=== PATIENT | female | born 1955 | race Caucasian/White ===

== ENCOUNTER 2021-07-15 14:15 | Emergency (ER) | payer MEDICARE, OTHER ==
[~2021-07-15] VITALS: Ht 167 cm; Wt 127.5 kg
--- NOTE | 2021-07-15 14:59 | ED General ---
General Stated Complaint: ATIVAN OVERDOSE History of Present Illness Date Seen by Provider: Jul 15, 2021 Time Seen by Provider: 14:56 Initial Comments 65-year-old female presents via private vehicle with her son who she just moved in with recently. Patient states that she has been taking Ativan this morning to "get out of the way", she just wanted to go to sleep. She feels like she is getting "underfoot" of her son and family and does not want to be a bother. Patient denies suicidality, wanting to do herself any harm. Admits she has been taking Ativan pretty frequently for the past 2 months as she has been followed by the [facility]. Since 7 AM this morning she is taking 12-16 0.5 mg tablets of Ativan and now is feeling a little bit sleepy, although ambulatory and conversive with out any confusion Allergies and Home Medications Patient Home Medication List Home Medication List Reviewed: Yes Review of Systems Review of Systems Constitutional: No fever, No malaise, No weakness Cardiovascular: No chest pain, No edema, No palpitations Psychiatric/Neurological: See HPI, Anxiety, Depressed, Emotional Problems Past Ancmsxk-Asrlwi-Vvfwpm Hx Patient Social History Tobacco Use?: Yes Physical Exam Vital Signs Capillary Refill : Height, Weight, BMI Height: '" Weight: lbs. oz. kg; BMI Method: General Appearance: No Apparent Distress, WD/WN; No Anxious HEENT: PERRL/EOMI, Normal ENT Inspection Respiratory: Chest Non Tender, Lungs Clear, Normal Breath Sounds, No Accessory Muscle Use, No Respiratory Distress Cardiovascular: Regular Rate, Rhythm, No Edema, No JVD Gastrointestinal: Non Tender, Soft Back: Normal Inspection Neurologic/Psychiatric: Alert, Oriented x3, No Motor/Sensory Deficits, Normal Mood/Affect Progress/Results/Core Measures Suspected Sepsis SIRS Temperature: Pulse: Respiratory Rate: Blood Pressure / Mean: Results/Orders Vital Signs/I&O Capillary Refill : Progress Note : Progress Note Patient denies suicidality, significant depression or wanting to hurt herself. States she really just wanted to sleep and be out of bed once way. Present with her son who she is currently moved in with and who is very supportive and concerned for his mother. Discussed the amount of Ativan that she is taking since last night (total of 8 mg) and patient has been taking it for the past 2 months fairly regularly and at similar doses. Patient did not want to be seen, wanted to go out and smoke and just wanted to go home. Discussed the amount of Ativan she had taken since 730 was not likely very significant for a person who has been taking it for couple months, however strongly urged her not to use this during the daytime and in this manner. She agrees and understands. She is going to follow-up with local mental health and get established with care. Son is comfortable taking her home and will watch her, encourage conversation cooperation between the 2. Them expressed understanding and patient was discharged cooperatively and son was in agreement. Departure Impression Primary Impression: Insomnia Qualified Codes: G47.00 - Insomnia, unspecified Additional Impression: Stress reaction Disposition: HOME, SELF-CARE Condition: Stable Departure-Patient Inst. Decision time for Depature: 14:58 Referrals: NO,LOCAL PHYSICIAN (PCP/Family) Primary Care Physician Patient Instructions: Insomnia (DC), Anxiety, Adult ED Add. Discharge Instructions: Recommend follow-up with mental health counselor in 1 week. DELIA LUIS DO Jul 15, 2021 14:59
[2021-07-15 15:05] VITALS: BP 163/96
== END 2021-07-15 15:02 | disposition home or self-care (01) ==
LOC: ER FS 14:18
DX: G47.00 Insomnia, unspecified (principal); F43.9 Reaction to severe stress, unspecified
CPT/HCPCS: 99281

== ENCOUNTER 2021-10-06 12:33 | Emergency (ER) | payer MEDICARE ==
[~2021-10-06] VITALS: Ht 167.7 cm; Wt 127.5 kg
--- NOTE | 2021-10-06 13:06 | ED Respiratory ---
General Chief Complaint: COVID19 Suspect/Confirmed Stated Complaint: SOB; COVID+ Source: patient Exam Limitations: no limitations History of Present Illness Date Seen by Provider: Oct 06, 2021 Time Seen by Provider: 12:36 Initial Comments 66yoF with PMH of COPD wears 2L O2 at night time, CAD with stents, HTN, HLD coming in due to 3 weeks of sinusitis like symptoms. Has been given mucinex, an inhaler, and an unknown antibiotic which she is still taking today. 6 days ago she noticed a change in her symptoms with new headache, worsening cough, and general malaise. In the middle the night she woke up feeling short of breath so took her oxygen saturation. She noticed her O2 sat was 81% (she was not using her oxygen at the time which is normally 2L nocturnally). Went to the walk in clinic this morning and was COVID positive so referred here. Has had ibuprofen today. Cough is productive of clear mucus. Of note, although she is supposed to wear 2 L of oxygen at night, a certain connector was broken and she has been waiting for this. Got a new one this morning so will be able to use her oxygen again. Allergies and Home Medications Allergies Coded Allergies: No Known Drug Allergies (Unverified , 10/06/21) Patient Home Medication List Home Medication List Reviewed: Yes Prednisone (Prednisone) 20 Mg Tab, 40 MG PO DAILY Prescribed by: ROEL HEARD on 10/06/21 7187 Review of Systems Review of Systems Constitutional: No chills, No fever EENTM: No blurred vision Respiratory: cough, short of breath Cardiovascular: No chest pain Gastrointestinal: No abdominal pain, No diarrhea, No nausea, No vomiting Genitourinary: no symptoms reported Musculoskeletal: no symptoms reported Skin: no symptoms reported Psychiatric/Neurological: No Symptoms Reported Hematologic/Lymphatic: No Symptoms Reported Immunological/Allergic: no symptoms reported All Other Systems Reviewed Negative Unless Noted: Yes Past Pugbgro-Iksndr-Iugouw Hx Patient Social History Tobacco Use?: Yes Immunizations Up To Date First/Initial COVID19 Vaccinat: MARCH 27 Second COVID19 Vaccination Kamar: APRIL 26 Physical Exam Vital Signs - First Documented 10/06/21 12:45 Temp 36.5 Pulse 99 Resp 16 B/P (MAP) 144/78 (100) Pulse Ox 97 O2 Delivery Room Air Capillary Refill : Height: '" Weight: lbs. oz. kg; 45.00 BMI Method: General Appearance: WD/WN, no apparent distress Eyes: Bilateral Eye Normal Inspection HEENT: PERRL/EOMI, normal ENT inspection, pharynx normal Neck: non-tender, full range of motion, supple, normal inspection Respiratory: chest non-tender, lungs clear, normal breath sounds, no respiratory distress, no accessory muscle use Cardiovascular: regular rate, rhythm, no edema, no murmur Gastrointestinal: normal bowel sounds, non tender, soft; No distended, No guarding, No rebound Extremities: normal range of motion, non-tender, normal inspection, no pedal edema, no calf tenderness, normal capillary refill Neurologic/Psychiatric: no motor/sensory deficits, alert Skin: normal color, warm/dry Lymphatic: no adenopathy Progress/Results/Core Measures Suspected Sepsis SIRS Temperature: Pulse: Respiratory Rate: Laboratory Tests 10/06/21 13:00: White Blood Count 3.5L Blood Pressure / Mean: Laboratory Tests 10/06/21 13:00: Creatinine 0.85, Platelet Count 112L, Total Bilirubin 0.5 Results/Orders Lab Results Laboratory Tests Test 10/06/21 13:00 Range/Units White Blood Count 3.5 L 4.3-11.0 10^3/uL Red Blood Count 5.04 3.80-5.11 10^6/uL Hemoglobin 14.8 11.5-16.0 g/dL Hematocrit 46 35-52 % Mean Corpuscular Volume 92 80-99 fL Mean Corpuscular Hemoglobin 29 25-34 pg Mean Corpuscular Hemoglobin Concent 32 32-36 g/dL Red Cell Distribution Width 13.7 10.0-14.5 % Platelet Count 112 L 130-400 10^3/uL Mean Platelet Volume 11.1 9.0-12.2 fL Immature Granulocyte % (Auto) 1 % Neutrophils (%) (Auto) 66 42-75 % Lymphocytes (%) (Auto) 27 12-44 % Monocytes (%) (Auto) 6 0-12 % Eosinophils (%) (Auto) 0 0-10 % Basophils (%) (Auto) 0 0-10 % Neutrophils # (Auto) 2.3 1.8-7.8 X 10^3 Lymphocytes # (Auto) 0.9 L 1.0-4.0 X 10^3 Monocytes # (Auto) 0.2 0.0-1.0 X 10^3 Eosinophils # (Auto) 0.0 0.0-0.3 10^3/uL Basophils # (Auto) 0.0 0.0-0.1 10^3/uL Immature Granulocyte # (Auto) 0.0 0.0-0.1 10^3/uL Percent Immature Platelet Fraction 3.5 0.0-7.6 % Sodium Level 137 135-145 MMOL/L Potassium Level 3.7 3.6-5.0 MMOL/L Chloride Level 100 98-107 MMOL/L Carbon Dioxide Level 26 21-32 MMOL/L Anion Gap 11 5-14 MMOL/L Blood Urea Nitrogen 8 7-18 MG/DL Creatinine 0.85 0.60-1.30 MG/DL Estimat Glomerular Filtration Rate 67 BUN/Creatinine Ratio 9 Glucose Level 113 H 70-105 MG/DL Calcium Level 8.5 8.5-10.1 MG/DL Corrected Calcium 8.7 8.5-10.1 MG/DL Total Bilirubin 0.5 0.1-1.0 MG/DL Aspartate Amino Transf (AST/SGOT) 30 5-34 U/L Alanine Aminotransferase (ALT/SGPT) 19 0-55 U/L Alkaline Phosphatase 116 40-136 U/L Troponin I < 0.30 <0.30 NG/ML Pro-B-Type Natriuretic Peptide 315.2 H <75.0 PG/ML Total Protein 7.2 6.4-8.2 GM/DL Albumin 3.8 3.2-4.5 GM/DL My Orders Orders - ROEL HEARD MD Prednisone Tablet (Deltasone Tablet) (10/06/21 13:15) Ekg Tracing (10/06/21 13:15) Cbc With Automated Diff (10/06/21 13:15) Comprehensive Metabolic Panel (10/06/21 13:15) Probnp Fs (10/06/21 13:15) Troponin I Fs (10/06/21 13:15) Chest 1 View Ap/Pa Only (10/06/21 13:15) Covid-19 External Lab Results (10/06/21 13:25) Isolation Central Supply Req (10/06/21 13:25) Medications Given in ED Current Medications Medications Dose Ordered Sig/Deanna Route Start Time Stop Time Status Last Admin Dose Admin Prednisone 40 mg ONCE ONCE PO 10/06/21 13:15 10/06/21 13:19 DC 10/06/21 14:08 40 MG Vital Signs/I&O 10/06/21 10/06/21 12:45 14:08 Temp 36.5 36.5 Pulse 99 85 Resp 16 16 B/P (MAP) 144/78 (100) 135/81 Pulse Ox 97 96 O2 Delivery Room Air Room Air Capillary Refill : Progress Note : Progress Note 66-year-old female with above history coming in due to low oxygen saturation reading in the middle of the night and being Covid positive as of today. She is day 6 of these symptoms. She is not currently feeling short of breath, but does feel short of breath with more exertion. Oxygen saturation ranged from 93 to 97% the entire time in the emergency department even when I ambulate her around the room. Lungs were clear. Given the more productive cough with her COPD, also possible she is having a COPD exacerbation on top of the COVID infection. She is already on an antibiotic which I can only assume would cover some re spiratory causes given she was treated for sinusitis. I will add prednisone for her COPD. EKG obtained with no acute ischemic changes. Chest x-ray is clear on my interpretation. Basic labs including cardiac biomarkers ordered and are reassuring including negative troponin. The only low oxygen readings the patient had that were consistent were in the middle the night when she was not wearing her oxygen. She is supposed to wear 2 L at nighttime which now she is able to do since she has the appropriate piece to connect it. I believe she is stable for discharge with outpatient follow-up. She was sent home with strict return precautions.. Of note, I discussed the monoclonal antibody treatment, Sotrovimab, and that it is currently under [facility]. Given that the patient is on COPD with intermittent oxygen requirements and CAD with stenting, I believe she would be high enough risk to warrant this at this time. Discussed this with the patient and she does want to go forward with therapy if available. ECG Initial ECG Impression Date: Oct 06, 2021 Initial ECG Impression Time: 13:15 Initial ECG Rate: 92 Initial ECG Rhythm: Normal Sinus Comment Narrow QRS, normal axis, Q waves in the inferior leads, no significant ST changes or T wave abnormalities Diagnostic Imaging Diagonstic Imaging: Xray Plain Films/CT/US/NM/MRI: chest Comments [facility], [facility]. [place], [place] NAME: NOAH HOWELL [facility] REC#: [id number] PT STATUS: REG ER : 1955 PHYSICIAN: ROEL HEARD MD ADMIT DATE: 10/06/21/ER FS Draft Date of Exam:10/06/21 CHEST 1 VIEW AP/PA ONLY INDICATION: Dyspnea and COVID infection. AP view of the chest is obtained. There is no previous study for comparison. Overall heart size and pulmonary vascularity are within normal limits. There is air trapping, bilaterally. There is no evidence of significant pleural fluid. IMPRESSION: No acute abnormality is identified. Dictated on workstation # [id number] Dict: 10/06/21 1327 Trans: 10/06/21 133[address] [facility] [id number] Interpreted by: NIK MANDUJANO MD Electronically signed by: Departure Impression Primary Impression: COVID-19 Additional Impression: COPD (chronic obstructive pulmonary disease) Qualified Codes: J44.9 - Chronic obstructive pulmonary disease, unspecified Disposition: HOME, SELF-CARE Condition: Stable Departure-Patient Inst. Referrals: DEANNA AHUJA MD (PCP) Primary Care Physician Patient Instructions: COVID-19 ED Add. Discharge Instructions: You do have COVID, but your chest x-ray looks clear today and you do not have any obvious pneumonia. I do recommend finishing the antibiotic you were prescribed. I will add in a steroid which can help with your COPD and lung infections such as COVID. You got 1 dose here, and you will take it for another 4 days on top of that. I also sent an order in for the monoclonal antibody treatment called Sotrovimab. A pharmacist or someone similar will call from [place] to see if they can schedule this. They have very limited number of doses, so they may not be able to do this, but if they are able to, I would william mmend it. I would continue to wear your oxygen at nighttime, and if you are low at home it is okay to put it on until you come back up. Please call your regular doctor on Saturday if you are not feeling significantly better to see if they want make any changes to your medications. Scripts Prednisone (Prednisone) 20 Mg Tab 40 MG PO DAILY for 4 Days, #8 TAB 0 Refills Prov: ROEL HEARD MD 10/06/21 ROEL HEARD MD Oct 06, 2021 13:06
[2021-10-06] MEDS ORDERED: predniSONE 20 MG TAB PO ONE (13:15)
--- NOTE | 2021-10-06 13:31 | Diagnostic Imaging Report ---
INDICATION: Dyspnea and COVID infection. AP view of the chest is obtained. There is no previous study for comparison. Overall heart size and pulmonary vascularity are within normal limits. There is air trapping, bilaterally. There is no evidence of significant pleural fluid. IMPRESSION: No acute abnormality is identified. Dictated by: Dictated on workstation # [id number]
[2021-10-06 13:34] LABS: WHITE BLOOD COUNT 3.5 10^3/uL (4.3-11.0)
[2021-10-06 13:35] LABS: BASOPHILS % (AUTO) 0 % (0-10); EOSINOPHILS % (AUTO) 0 % (0-10); HEMATOCRIT 46 % (35-52); HEMOGLOBIN 14.8 g/dL (11.5-16.0); LYMPHOCYTES # (AUTO) 0.9 X 10^3 (1.0-4.0); LYMPHOCYTES % (AUTO) 27 % (12-44); MEAN CORPUSCULAR HEMOGLOBIN 29 pg (25-34); MEAN CORPUSCULAR HGB CONC 32 g/dL (32-36); MEAN CORPUSCULAR VOLUME 92 fL (80-99); MEAN PLATELET VOLUME 11.1 fL (9.0-12.2); MONOCYTES # (AUTO) 0.2 X 10^3 (0.0-1.0); MONOCYTES % (AUTO) 6 % (0-12); NEUTROPHILS # (AUTO) 2.3 X 10^3 (1.8-7.8); NEUTROPHILS % (AUTO) 66 % (42-75); PLATELET COUNT 112 10^3/uL (130-400)
[2021-10-06] MEDS ORDERED: PRD20T PO (13:47)
[2021-10-06 13:51] LABS: BUN/CREATININE RATIO 9; CARBON DIOXIDE 26 MMOL/L (21-32); CHLORIDE 100 MMOL/L (98-107); CREATININE SERUM 0.85 MG/DL (0.60-1.30); GFR ESTIMATED 67; POTASSIUM 3.7 MMOL/L (3.6-5.0); SODIUM 137 MMOL/L (135-145)
[2021-10-06 13:52] LABS: ALANINE AMINOTRANSFERASE 19 U/L (0-55); ALBUMIN 3.8 GM/DL (3.2-4.5); ALKALINE PHOSPHATASE 116 U/L (40-136); BILIRUBIN,TOTAL 0.5 MG/DL (0.1-1.0); CALCIUM 8.5 MG/DL (8.5-10.1); GLUCOSE 113 MG/DL (70-105); TOTAL PROTEIN 7.2 GM/DL (6.4-8.2)
[2021-10-06 14:08] VITALS: BP 135/81
== END 2021-10-06 14:15 | disposition home or self-care (01) ==
LOC: EDUNIT# 12:33 → ER FS 12:36
DX: U07.1 COVID-19 (principal); J44.9 Chronic obstructive pulmonary disease, unspecified; I10 Essential (primary) hypertension; I25.10 Atherosclerotic heart disease of native coronary artery without angina pectoris; Z95.5 Presence of coronary angioplasty implant and graft; Z99.81 Dependence on supplemental oxygen
CPT/HCPCS: 36415; 71045; 80053; 83880; 84484; 85025; 93005

== ENCOUNTER → 2021-10-09 | Outpatient (CLI) | payer MEDICARE ==
[~2021-10-09] VITALS: Ht 66 cm; Wt 125.0 kg
[~2021-10-09] MED LIST: ACETAMINOPHEN 500 MG TAB (TYLENOL) PO PRN; EPINEPHrine INJECTION 1 MG/ML AMP IM PRN; ONDANSETRON 4 MG/2 ML (SDV) Z0FRAN IV PRN; PRD20T PO; SOTROVIMAB 500 MG/NS 100 ML IVPB IV ONE; diphenhydrAMINE 50 MG/ML INJ (BENADRYL) IV PRN
[2021-10-09 10:57] VITALS: BP 150/89
[2021-10-09 11:59] VITALS: BP 153/82
== END ==
LOC: INFUSION 10:33
PROVIDERS: ATTEND Emergency Medicine
DX: U07.1 COVID-19 (principal)

== ENCOUNTER 2021-12-02 20:52 | Emergency (ER) | payer MEDICARE, MEDICAID ==
[~2021-12-02] VITALS: Ht 167.7 cm; Wt 124.7 kg
[~2021-12-02 20:52] MED LIST changes: -ACETAMINOPHEN 500 MG TAB (TYLENOL) PO PRN; -EPINEPHrine INJECTION 1 MG/ML AMP IM PRN; -ONDANSETRON 4 MG/2 ML (SDV) Z0FRAN IV PRN; -SOTROVIMAB 500 MG/NS 100 ML IVPB IV ONE; -diphenhydrAMINE 50 MG/ML INJ (BENADRYL) IV PRN
[2021-12-02] MEDS ORDERED: RT-LEVALBUTEROL (XOPENEX) 1.25 MG/3 ML NEB NON-FORMULARY INH STA (21:14)
[2021-12-02] MEDS ORDERED: ASPIRIN 81 MG CHEW (CHILDREN'S ASA) PO ONE (21:15)
[2021-12-02 21:19] LABS: BASOPHILS # (AUTO) 0.1 10^3/uL (0.0-0.1); BASOPHILS % (AUTO) 1 % (0-10); EOSINOPHILS # (AUTO) 0.2 10^3/uL (0.0-0.3); EOSINOPHILS % (AUTO) 3 % (0-10); HEMATOCRIT 45 % (35-52); HEMOGLOBIN 15.2 g/dL (11.5-16.0); LYMPHOCYTES # (AUTO) 2.8 X 10^3 (1.0-4.0); LYMPHOCYTES % (AUTO) 32 % (12-44); MEAN CORPUSCULAR HEMOGLOBIN 30 pg (25-34); MEAN CORPUSCULAR HGB CONC 34 g/dL (32-36); MEAN CORPUSCULAR VOLUME 89 fL (80-99); MEAN PLATELET VOLUME 10.7 fL (9.0-12.2); MONOCYTES # (AUTO) 0.5 X 10^3 (0.0-1.0); MONOCYTES % (AUTO) 5 % (0-12); NEUTROPHILS # (AUTO) 5.4 X 10^3 (1.8-7.8); NEUTROPHILS % (AUTO) 60 % (42-75); PLATELET COUNT 160 10^3/uL (130-400); WHITE BLOOD COUNT 8.9 10^3/uL (4.3-11.0)
--- NOTE | 2021-12-02 21:23 | ED Chest Pain ---
General Chief Complaint: Chest Pain Stated Complaint: CHEST PAIN Source: patient, family History of Present Illness Date Seen by Provider: Dec 02, 2021 Time Seen by Provider: 20:53 Initial Comments 66-year-old female presenting with complaints of chest pain for the last hour. She states that it came on suddenly and she felt like her heart was beating hard and palpating. 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 She has had constant chest pain since onset over an hour precinct captain. She states initially it went to her left jaw and arm. She now just has pain in her chest. She also has wheezing and tightness in her chest that she is not sure if it is from her COPD or if it is from something with her heart. She also reports her cough has been different recently than her usual smoker's cough. She has not been running a fever or having chills. She is having a dry cough but eventually if she coughs long enough and hard enough she gets some phlegm up with her cough. She denies nausea with her pain. She states this pain does not feel like when she has had prior heart attacks. Timing/Duration: 1 hour Severity/Quality: severe Location: substernal Radiation: jaw, arms (left) Activities at Onset: none Prior CP/Workup: angina, cardiac cath, heart attack ASA po STAVE LOG CUT OFF SAW OPERATOR: No NTG SL STAVE LOG CUT OFF SAW OPERATOR: No Associated Symptoms: No abdominal pain, No back pain, No diaphoresis, No dizziness, No edema, No fatigue, No fever/chills, No headache, No heartburn, No nausea/vomiting, No rash; shortness of breath; No swelling/lump in chest, No syncope, No weakness Allergies and Home Medications Allergies Coded Allergies: No Known Drug Allergies (Unverified , 10/06/21) Patient Home Medication List Home Medication List Reviewed: Yes Diltiazem HCl (Diltiazem 24Hr ER) 180 Mg Cap.er.24h, 180 MG PO DAILY Prescribed by: BROOKLYN PEÑALOZA on 12/02/21 2310 Prednisone (Prednisone) 20 Mg Tab, 40 MG PO DAILY Prescribed by: ROEL HEARD on 10/06/21 1347 Review of Systems Review of Systems Constitutional: No chills, No fever EENTM: No Symptoms Reported Respiratory: See HPI Cardiovascular: See HPI Gastrointestinal: No Symptoms Reported Genitourinary: No Symptoms Reported Musculoskeletal: no symptoms reported Skin: no symptoms reported Psychiatric/Neurological: Anxiety Endocrine: No Symptoms Reported Past Mdnwdai-Srkeqi-Jxnvnr Hx Patient Social History Tobacco Use?: Yes Tobacco type used: Cigarettes Smoking Status: Current Everyday Smoker Substance use?: No Alcohol Use?: No Pt feels they are or have been: No Immunizations Up To Date First/Initial COVID19 Vaccinat: MARCH 27 Second COVID19 Vaccination Kamar: APRIL 26 COVID19 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: [employer] Past Medical History Surgery/Hospitalization HX: Chronic Sinusitis; IA; Cardiac stent; depression; left sided breast cancer; Lumpectomy; christiano; gastric bypass; hernia repair, COPD Surgeries: Yes Abdominal (gastric bypass), Coronary Stent, Gallbladder, Lumpectomy Respiratory: Yes COPD Cardiac: Yes Angina, Atrial Fibrillation (new onset Nov), Coronary Artery Disease, Heart Attack, High Cholesterol, Hypertension, Peripheral Vascular Neurological: No Genitourinary: No Gastrointestinal: Yes (gastric bypass) Abdominal Hernia Musculoskeletal: No Endocrine: No Cancer: Yes Breast Anxiety Physical Exam Vital Signs Vital Signs - First Documented 12/02/21 20:55 Temp 36.3 Pulse 108 Resp 20 B/P (MAP) 175/115 (135) Pulse Ox 93 O2 Delivery Room Air Capillary Refill : Less Than 3 Seconds Height, Weight, BMI Height: '" Weight: lbs. oz. kg; 45.00 BMI Method: General Appearance: Anxious, Obese Neck: Full Range of Motion, Normal Inspection, Non Tender, Supple Respiratory: Chest Non Tender, No Accessory Muscle Use, No Respiratory Distress, Wheezing Cardiovascular: Normal Peripheral Pulses, Irregularly Irregular, Tachycardia Gastrointestinal: Normal Bowel Sounds, No Pulsatile Mass, Non Tender, Soft Rectal: Deferred Extremity: Normal Capillary Refill, Normal Inspection, No Pedal Edema Neurologic/Psychiatric: Alert, Oriented x3 Skin: Normal Color, Warm/Dry Progress/Results/Core Measures Results/Orders Lab Results Laboratory Tests Test 12/02/21 21:09 12/02/21 22:27 Range/Units White Blood Count 8.9 4.3-11.0 10^3/uL Red Blood Count 5.07 3.80-5.11 10^6/uL Hemoglobin 15.2 11.5-16.0 g/dL Hematocrit 45 35-52 % Mean Corpuscular Volume 89 80-99 fL Mean Corpuscular Hemoglobin 30 25-34 pg Mean Corpuscular Hemoglobin Concent 34 32-36 g/dL Red Cell Distribution Width 13.8 10.0-14.5 % Platelet Count 160 130-400 10^3/uL Mean Platelet Volume 10.7 9.0-12.2 fL Immature Granulocyte % (Auto) 0 % Neutrophils (%) (Auto) 60 42-75 % Lymphocytes (%) (Auto) 32 12-44 % Monocytes (%) (Auto) 5 0-12 % Eosinophils (%) (Auto) 3 0-10 % Basophils (%) (Auto) 1 0-10 % Neutrophils # (Auto) 5.4 1.8-7.8 X 10^3 Lymphocytes # (Auto) 2.8 1.0-4.0 X 10^3 Monocytes # (Auto) 0.5 0.0-1.0 X 10^3 Eosinophils # (Auto) 0.2 0.0-0.3 10^3/uL Basophils # (Auto) 0.1 0.0-0.1 10^3/uL Immature Granulocyte # (Auto) 0.0 0.0-0.1 10^3/uL Prothrombin Time 14.1 12.2-14.7 SEC INR Comment 1.1 0.8-1.4 Activated Partial Thromboplast Time 24 24-35 SEC Sodium Level 138 135-145 MMOL/L Potassium Level 3.8 3.6-5.0 MMOL/L Chloride Level 100 98-107 MMOL/L Carbon Dioxide Level 27 21-32 MMOL/L Anion Gap 11 5-14 MMOL/L Blood Urea Nitrogen 16 7-18 MG/DL Creatinine 0.90 0.60-1.30 MG/DL Estimat Glomerular Filtration Rate 71 BUN/Creatinine Ratio 18 Glucose Level 99 70-105 MG/DL Calcium Level 9.0 8.5-10.1 MG/DL Corrected Calcium 8.8 8.5-10.1 MG/DL Magnesium Level 1.6 1.6-2.4 MG/DL Total Bilirubin 0.7 0.1-1.0 MG/DL Aspartate Amino Transf (AST/SGOT) 17 5-34 U/L Alanine Aminotransferase (ALT/SGPT) 13 0-55 U/L Alkaline Phosphatase 108 40-136 U/L Myoglobin 55.5 10.0-92.0 NG/ML Troponin I < 0.30 < 0.30 <0.30 NG/ML Pro-B-Type Natriuretic Peptide 607.5 H <75.0 PG/ML Total Protein 7.2 6.4-8.2 GM/DL Albumin 4.2 3.2-4.5 GM/DL Lipase 28 8-78 U/L My Orders Orders - BROOKLYN PEÑALOZA MD Ekg Tracing (12/02/21 20:54) Cbc With Automated Diff (12/02/21 21:14) Magnesium (12/02/21 21:14) Chest 1 View Ap/Pa Only (12/02/21 21:14) Comprehensive Metabolic Panel (12/02/21 21:14) Myoglobin Serum (12/02/21 21:14) Protime With Inr (12/02/21 21:14) Partial Thromboplastin Time (12/02/21 21:14) O2 (12/02/21 21:14) Monitor-Rhythm Ecg Trace Only (12/02/21 21:14) Aspirin Chewable Tablet (Baby Aspirin Ch (12/02/21 21:15) Ed Iv/Invasive Line Start (12/02/21 21:14) Lipase (12/02/21 21:14) Troponin I Fs (12/02/21 21:14) Probnp Fs (12/02/21 21:14) Diltiazem Injection (Cardizem Injection) (12/02/21 21:14) Levalbuterol (Non-Formulary) (Xopenex (N (12/02/21 21:14) Ekg Tracing (12/02/21 22:33) Troponin I Fs (12/02/21 22:33) Diltiazem Cd 24 Hr Capsule (Cardizem Cd (12/02/21 23:04) Medications Given in ED Current Medications Medications Dose Ordered Sig/Deanna Route Start Time Stop Time Status Last Admin Dose Admin Aspirin 324 mg ONCE ONCE PO 12/02/21 21:15 12/02/21 21:17 DC 12/02/21 21:27 324 MG Vital Signs/I&O 12/02/21 20:55 Temp 36.3 Pulse 108 Resp 20 B/P (MAP) 175/115 (135) Pulse Ox 93 O2 Delivery Room Air Progress Progress Note #1: Progress Note check labs and ECG with Chest xray. ECG shows atrial fibrillation with heart rate in 120s. She has hypertension with this as well. She became upset when the blood pressure cuff was pumping too high. Initially the BP cuff was on her forearm and read high so we moved the cuff to a larger size and to upper arm. She complained that it was going too high and hurt too much and that we had to stop. I explained to her that it was on the way back down and would be easing up but that her BP was high so it had to pump up a lot to get an accurate reading. She then snapped back that she did not want to be here and asked her daughter to take her home because she did not want to be somewhere that we were just trying to hurt her. I again tried to explain to her that we needed to try and get an accurate reading on her blood pressure. She again was short with her answer and said that I did not listen to her when she told me to take it off and to stop taking her blood pressure because it hurt. Her daughter went and got her brother from the waiting room and they traded places in the room. He reinforced what I had already told her that with her irregular heart beat and now onset atrial fibrillation she may have had a new heart attack or new damage to her heart that caused this new rhythm to develop. It would be a matter of blood work and testing that can take several hours to get results and know if she can respond and improve where she could go home and be seen as outpatient or if she would need to transfer to hospital with manager therapy to evaluate her. She reports she has other providers in [place] that she sees and is scheduled to see a Binding Bench Worker in [place] coming up in the next week or two to establish care since she moved here from [place]. If she has to be admitted she wants to go to [facility]. I ordered Cardizem 10 mg IV bolus to try and help with her heart rate and rhythm. Also ordered xopenex treatment for her wheezing to see if that helps her breathing without raising her heart rate. I ordered 324 mg of baby aspirin but pt states she had already taken aspirin today. Progress Note #2: Progress Note Labs are stable with no acute significant abnormality on her CBC or chemistry. Her cardiac enzymes are negative for acute myocardial infarction. The chest x- ray does not show any acute process. After a single 10 mg bolus of diltiazem her heart rate is down in the 90s and sinus rhythm. Her blood pressure has improved to 140/94. After a Xopenex treatment her breathing has improved and her oxygen saturation is 92 to 93% on room air. Will discuss plan with cardiology and since she plans to follow up with [place] will get the name of her doctor she is to see and see if I can reach them or the doctor teacher of the emotionally disturbed for them to discuss outpatient plan for follow up. Progress Note #3: Time: 22:48 Progress Note Repeat electrocardiogram shows sinus rhythm without ST elevation. Patient's tightness in her chest had resolved with improving her heart rhythm. Will repeat the troponin and a page was placed to Dr. Scanlon or the doctor covering for him with cardiology at [facility]. Will check with them to see if they have any preference in terms of rate controlling medication to send the patient home on as well as mother to start Eliquis or other blood thinner since she already takes aspirin and Plavix. She did apologize for her demeanor and behavior when she arrived. She had voiced that she did not want to be here but her family made her come be seen. She was starting to feel better so she was in better spirits and was smiling and more pleasant with staff. Progress Note #4: Time: 22:55 Progress Note 2nd troponin I is still <0.3. Awaiting Cardiology call back to get their input on discharge medicines since pt is scheduled to see Dr. Scanlon Saturday and could get echocardiogram done then to check for mural thrombus. Nurse practitioner for Dr. Scanlon called back at [phone] so I reviewed case with her. She was in agreement of starting Cardizem CD to help control the rate and hopefully prevent atrial fibrillation as well as control rate and keep it under 100 bpm. Since she is already on plavix and aspirin will defer further anticoagulation until she can see Dr. Scanlon and have echo done. Give first dose of Diltiazem 120 mg ER here and prescribe 180 mg ER to start SaturdayDec 03. Initial ECG Impression Date: Dec 02, 2021 Initial ECG Impression Time: 20:59 Initial ECG Rate: 123 Initial ECG Rhythm: A Fib/Flutter Initial ECG Comparisson: Changed Comment Atrial fibrillation with a heart rate of 123 bpm. Q waves in 2, 3, aVF. No acute ST elevation. QT interval 326 ms with a QTc interval 467 ms. Prior tracings from October 2021 showed sinus rhythm with old anterior infarct Q waves so the atrial fibrillation is a new finding. EKG : EKG Time: 22:34 Rate: 93 Rhythm: Normal Sinus ECG Comparisson: Changed Comment Normal sinus rhythm with a heart rate of 93 bpm. Borderline prolonged DC interval of [address] elevation. QT interval 350 ms with a QTc interval 436 ms. This is new from her first tracing that was showing atrial fibrillation. It appears more similar to her tracings from October 2021 Diagnostic Imaging Diagonstic Imaging: Xray Plain Films/CT/US/NM/MRI: chest Comments NAME: [facility] HOWELL [facility] REC#: [id number] PT STATUS: REG ER : 1955 PHYSICIAN: RBOOKLYN PEÑALOZA MD ADMIT DATE: 12/02/21/ER FS Draft Date of Exam:12/02/21 CHEST 1 VIEW AP/PA ONLY EXAM: Chest 1 view AP/PA only. INDICATION: Chest pain. Shortness of breath. COMPARISON: 10/06/2021. FINDINGS: Normal heart size and pulmonary vascularity. No dense consolidation, pleural effusion or pneumothorax. No acute osseous findings. IMPRESSION: No acute cardiopulmonary findings. Dictated on workstation # [id number] Dict: 12/02/212199 Trans: 12/02/212201 [id number] Interpreted by: KAMRON JACOBO MD Electronically signed by: Departure Impression Primary Impression: New onset atrial fibrillation Additional Impression: COPD (chronic obstructive pulmonary disease) with chronic bronchitis Disposition: 01 HOME, SELF-CARE Condition: Stable Departure-Patient Inst. Decision time for Depature: 23:05 Referrals: DEANNA AHUJA MD (PCP/Family) Primary Care Physician Patient Instructions: Atrial Fibrillation and Atrial Flutter ED Add. Discharge Instructions: Continue with the Aspirin and Plavix you are already taking at home. Take Diltiazem 180 mg once a day to help control your heart rate and help prevent your heart going back into atrial fibrillation. If it does go into Atrial Fibrillation again before you see Dr. Scanlon, as long as your heart rate stayed under 100 then you would not have to do anything different. If your heart rate is going over 100, you are having chest pains, or you have increased shortness of breath then you should be seen again to be rechecked. Keep your appointment with Dr. Scanlon this week. All discharge instructions reviewed with patient and/or family. Voiced understanding. Scripts Diltiazem HCl (Diltiazem 24Hr ER) 180 Mg Cap.er.24h 180 MG PO DAILY for Atrial Fibrillation for 30 Days, #30 CAP 0 Refills Prov: BROOKLYN PEÑALOZA MD 12/02/21 BROOKLYN PEÑALOZA MD Dec 02, 2021 21:23
[2021-12-02 21:26] LABS: INR 1.1 (0.8-1.4); PROTHROMBIN TIME PATIENT 14.1 SEC (12.2-14.7)
[2021-12-02 21:37] LABS: ALBUMIN 4.2 GM/DL (3.2-4.5); BILIRUBIN,TOTAL 0.7 MG/DL (0.1-1.0); CREATININE SERUM 0.9 MG/DL (0.60-1.30); MAGNESIUM 1.6 MG/DL (1.6-2.4); POTASSIUM 3.8 MMOL/L (3.6-5.0); TOTAL PROTEIN 7.2 GM/DL (6.4-8.2)
--- NOTE | 2021-12-02 22:02 | Diagnostic Imaging Report ---
EXAM: Chest 1 view AP/PA only. INDICATION: Chest pain. Shortness of breath. COMPARISON: 10/06/2021. FINDINGS: Normal heart size and pulmonary vascularity. No dense consolidation, pleural effusion or pneumothorax. No acute osseous findings. IMPRESSION: No acute cardiopulmonary findings. Dictated by: Dictated on workstation # [id number]
[2021-12-02] MEDS ORDERED: dilTIAZem120 MG (CARDIZEM CD) CAP PO STA (23:04)
[2021-12-02] MEDS ORDERED: DILT180C85 PO (23:10)
[2021-12-02 23:11] VITALS: BP 154/96
== END 2021-12-02 23:11 | disposition home or self-care (01) ==
LOC: EDUNIT# 20:52 → ER FS 20:54
DX: I48.91 Unspecified atrial fibrillation (principal); J44.9 Chronic obstructive pulmonary disease, unspecified; F17.210 Nicotine dependence, cigarettes, uncomplicated
CPT/HCPCS: 36415; 71045; 80053; 83690; 83735; 83874; 83880; 84484; 85025; 85610; 85730; 93005; 93041

== ENCOUNTER 2023-05-04 14:10 | Emergency (ER) | payer MEDICARE, MEDICAID ==
[~2023-05-04] VITALS: Ht 167 cm; Wt 136.5 kg
[~2023-05-04 14:10] MED LIST changes: +CEPH500T PO; +DILT180C85 PO
[2023-05-04 14:27] LABS: BASOPHILS # (AUTO) 0.1 10^3/uL (0.0-0.1); BASOPHILS % (AUTO) 1 % (0-10); EOSINOPHILS # (AUTO) 0.1 10^3/uL (0.0-0.3); EOSINOPHILS % (AUTO) 1 % (0-10); HEMATOCRIT 48 % (35-52); LYMPHOCYTES # (AUTO) 1.7 10^3/uL (1.0-4.0); LYMPHOCYTES % (AUTO) 18 % (12-44); MEAN CORPUSCULAR HEMOGLOBIN 30 pg (25-34); MEAN CORPUSCULAR HGB CONC 32 g/dL (32-36); MEAN CORPUSCULAR VOLUME 94 fL (80-99); MEAN PLATELET VOLUME 11.9 fL (9.0-12.2); MONOCYTES # (AUTO) 0.3 10^3/uL (0.0-1.0); MONOCYTES % (AUTO) 3 % (0-12); NEUTROPHILS # (AUTO) 6.9 10^3/uL (1.8-7.8); NEUTROPHILS % (AUTO) 76 % (42-75); PLATELET COUNT 167 10^3/uL (130-400); WHITE BLOOD COUNT 9.1 10^3/uL (4.3-11.0)
[2023-05-04] MEDS ORDERED: FAMOTIDINE 20 MG (PEPCID) TABLET PO STA (14:29)
[2023-05-04] MEDS ORDERED: RT-ALBUTEROL/IPRATROPIUM 3 ML (DUONEB) VIAL INH ONE (14:30)
[2023-05-04] MEDS ORDERED: ANTACID SUSP 30 ML UDC (MYLANTA) PO ONE (14:30)
[2023-05-04] MEDS ORDERED: ASPIRIN 81 MG CHEWABLE TABLET PO ONE (14:30)
--- NOTE | 2023-05-04 14:33 | ED Cardiac General ---
History of Present Illness General Chief Complaint: Cardiac/General Problems Stated Complaint: HEART ISSUES Source: patient, old records Exam Limitations: no limitations History of Present Illness Date Seen by Provider: May 04, 2023 Time Seen by Provider: 14:16 Initial Comments 67-year-old female with past medical history of A-fib on Eliquis, CAD, COPD on 2 L O2 mostly at nighttime coming in due to palpitations and chest discomfort. Started over an hour prior to arrival. Similar to when she was here about a week ago, although she feels much better today compared to the episode. At that time she was found to be in A-fib with RVR and was not taking her medicines. She states she currently is taking all of her medicines including her diltiazem and metoprolol. She does not take aspirin or Plavix anymore. Chest pain is more of a pressure, constant, and nothing really seems to make it better or worse. Otherwise denying any other acute complaints including any leg swelling or pain, shortness of breath, fever, cough, abdominal pain, weakness, numbness, or any other concerns. [facility] MGR: No Allergies and Home Medications Allergies Coded Allergies: No Known Drug Allergies (Unverified , 10/06/21) Patient Home Medication List Home Medication List Reviewed: Yes Cephalexin (Cephalexin) 500 Mg Tablet, 500 MG PO BID Prescribed by: JATINDER EASON MD on 04/25/232252 Diltiazem HCl (Diltiazem 24Hr ER) 180 Mg Cap.er.24h, 180 MG PO DAILY Prescribed by: BROOKLYN PEÑALOZA on 12/02/21 2310 Prednisone (Prednisone) 20 Mg Tab, 40 MG PO DAILY Prescribed by: ROEL HEARD on 10/06/21 1347 Review of Systems Review of Systems Constitutional: No fever EENTM: No Symptoms Reported Respiratory: No Symptoms Reported Cardiovascular: See HPI Gastrointestinal: No Symptoms Reported Genitourinary: No Symptoms Reported Musculoskeletal: no symptoms reported Skin: no symptoms reported Past Udzornu-Ylcoww-Hchstv Hx Patient Social History Tobacco Use?: Yes Tobacco type used: Cigarettes Smoking Status: Current Everyday Smoker Use of E-Cig and/or Vaping dev: No Substance use?: No Alcohol Use?: No Pt feels they are or have been: No Immunizations Up To Date First/Initial COVID19 Vaccinat: unk Second COVID19 Vaccination Kamar: unk Third COVID19 Vaccination Date: unk Past Medical History Surgery/Hospitalization HX: Chronic Sinusitis; OR; Cardiac stent; depression; left sided breast cancer; Lumpectomy; christiano; gastric bypass; hernia repair, COPD Surgeries: Yes Abdominal, Coronary Stent, Gallbladder, Lumpectomy Respiratory: Yes COPD Cardiac: Yes Angina, Atrial Fibrillation, Coronary Artery Disease, Heart Attack, High Ch olesterol, Hypertension, Peripheral Vascular Neurological: No Genitourinary: No Gastrointestinal: Yes (gastric bypass) Abdominal Hernia Musculoskeletal: No Endocrine: No Cancer: Yes Breast Anxiety Physical Exam Vital Signs Vital Signs - First Documented 05/04/23 14:29 Temp 36.0 Pulse 97 Resp 16 B/P (MAP) 137/86 (103) Pulse Ox 92 O2 Delivery Room Air Capillary Refill : Less Than 3 Seconds Height, Weight, BMI Height: '" Weight: lbs. oz. kg; 48.00 BMI Method: General Appearance: No Apparent Distress, Obese HEENT: PERRL/EOMI, Normal ENT Inspection, Pharynx Normal Neck: Full Range of Motion, Normal Inspection, Non Tender, Supple Respiratory: Chest Non Tender, Lungs Clear, Normal Breath Sounds, No Accessory Muscle Use, No Respiratory Distress Cardiovascular: Regular Rate, Rhythm, Normal Peripheral Pulses Gastrointestinal: Normal Bowel Sounds, Non Tender, Soft; No Distended, No Guarding Extremity: Normal Capillary Refill, Normal Inspection, Normal Range of Motion, Non Tender, No Calf Tenderness, No Pedal Edema Neurologic/Psychiatric: Alert, Oriented x3, No Motor/Sensory Deficits, Normal Mood/Affect Skin: Normal Color, Warm/Dry Progress/Results/Core Measures Results/Orders Lab Results Laboratory Tests Test 05/04/23 14:20 05/04/23 15:20 Range/Units White Blood Count 9.1 4.3-11.0 10^3/uL Red Blood Count 5.05 3.80-5.11 10^6/uL Hemoglobin 15.0 11.5-16.0 g/dL Hematocrit 48 35-52 % Mean Corpuscular Volume 94 80-99 fL Mean Corpuscular Hemoglobin 30 25-34 pg Mean Corpuscular Hemoglobin Concent 32 32-36 g/dL Red Cell Distribution Width 13.6 10.0-14.5 % Platelet Count 167 130-400 10^3/uL Mean Platelet Volume 11.9 9.0-12.2 fL Immature Granulocyte % (Auto) 1 % Neutrophils (%) (Auto) 76 H 42-75 % Lymphocytes (%) (Auto) 18 12-44 % Monocytes (%) (Auto) 3 0-12 % Eosinophils (%) (Auto) 1 0-10 % Basophils (%) (Auto) 1 0-10 % Neutrophils # (Auto) 6.9 1.8-7.8 10^3/uL Lymphocytes # (Auto) 1.7 1.0-4.0 10^3/uL Monocytes # (Auto) 0.3 0.0-1.0 10^3/uL Eosinophils # (Auto) 0.1 0.0-0.3 10^3/uL Basophils # (Auto) 0.1 0.0-0.1 10^3/uL Immature Granulocyte # (Auto) 0.1 0.0-0.1 10^3/uL Prothrombin Time 12.9 12.2-14.7 SEC INR Comment 0.9 0.8-1.4 Activated Partial Thromboplast Time 26 24-35 SEC Sodium Level 140 135-145 MMOL/L Potassium Level 4.0 3.6-5.0 MMOL/L Chloride Level 98 98-107 MMOL/L Carbon Dioxide Level 32 21-32 MMOL/L Anion Gap 10 5-14 MMOL/L Blood Urea Nitrogen 10 7-18 MG/DL Creatinine 0.84 0.60-1.30 MG/DL Estimat Glomerular Filtration Rate 77 BUN/Creatinine Ratio 12 Glucose Level 171 H 70-105 MG/DL Calcium Level 9.7 8.5-10.1 MG/DL Corrected Calcium 9.6 8.5-10.1 MG/DL Magnesium Level 1.8 1.6-2.4 MG/DL Total Bilirubin 0.8 0.1-1.0 MG/DL Aspartate Amino Transf (AST/SGOT) 15 5-34 U/L Alanine Aminotransferase (ALT/SGPT) 12 0-55 U/L Alkaline Phosphatase 119 40-136 U/L Troponin I < 0.30 < 0.30 <0.30 NG/ML Pro-B-Type Natriuretic Peptide 115.9 <125.0 PG/ML Total Protein 7.2 6.4-8.2 GM/DL Albumin 4.1 3.2-4.5 GM/DL Lipase 29 8-78 U/L My Orders Orders - ROEL HEARD MD Cbc With Automated Diff (05/04/23 14:23) Magnesium (05/04/23 14:23) Chest 1 View Ap/Pa Only (05/04/23 14:23) Ekg Tracing (05/04/23 14:23) Comprehensive Metabolic Panel (05/04/23 14:23) Protime With Inr (05/04/23 14:23) Partial Thromboplastin Time (05/04/23 14:23) O2 (05/04/23 14:23) Monitor-Rhythm Ecg Trace Only (05/04/23 14:23) Ed Iv/Invasive Line Start (05/04/23 14:23) Lipase (05/04/23 14:23) Troponin I Fs (05/04/23 14:23) Probnp Fs (05/04/23 14:23) Famotidine Tablet (Pepcid Tablet) (05/04/23 14:29) Antacid Suspension (Mylanta Suspension (05/04/23 14:30) Aspirin Chewable Tablet (Aspirin Chewabl (05/04/23 14:30) Albuterol/Ipra Inhalation Soln (Duoneb I (05/04/23 14:30) Troponin I Fs (05/04/23 15:20) Medications Given in ED Vital Signs/I&O 05/04/23 05/04/23 14:29 15:38 Temp 36.0 36.0 Pulse 97 88 Resp 16 16 B/P (MAP) 137/86 (103) 160/81 Pulse Ox 92 93 O2 Delivery Room Air Room Air Progress Progress Note : Progress Note 67-year-old female with above history coming in due to palpitations and chest discomfort. ABCs were intact and vitals were stable on presentation. The patient is actually in sinus rhythm, I suspect she was in A-fib at home and her medications started working. EKG ordered and interpreted by me showing no acute ischemic changes, appears similar to prior, except she is in sinus. Chest x-ray ordered and interpreted by me showing no pneumothorax, appears similar to prior. An IV was placed and basic labs were obtained and were significant for negative troponin, normal BNP, normal white blood cell count, and otherwise they were essentially unremarkable. Repeat troponin ordered since she came a little over an hour after the discomfort started. The repeat troponin is also negative. Given that the discomfort is constant with 2 negative troponins, highly unlikely to be cardiac or ACS in nature. She is on Eliquis, no lower extremity swelling or pain, and clinically does not seem consistent with a PE at this time. Try to DuoNeb since her history of COPD to see if that would help with the "tightness", and may be helped somewhat. I believe she is otherwise stable for discharge with outpatient follow-up. She was sent home with strict return precautions. Initial ECG Impression Date: May 04, 2023 Initial ECG Impression Time: 14:17 Initial ECG Rate: 104 Initial ECG Rhythm: S.Tach Comment Narrow QRS, normal axis, no significant ST changes or T wave abnormalities, compared to prior EKG from a week ago, she currently is in sinus rhythm compared to when she was in A-fib then Diagnostic Imaging Diagonstic Imaging: Xray (chest) Comments [facility] [place], [place] NAME: NOAH HOWELL [facility] REC#: [id number] PT STATUS: REG ER : 1955 PHYSICIAN: ROEL HEARD MD ADMIT DATE: 05/04/23/ER FS Signed Date of Exam:05/04/23 CHEST 1 VIEW AP/PA ONLY EXAMINATION: Chest, 1 view. HISTORY: Chest pain. COMPARISON: 04/25/2023. FINDINGS: Heart size and pulmonary vasculature are normal. The lungs are clear without consolidation, pleural effusion, or pneumothorax. Degenerative changes of the thoracic spine. Osseous structures are otherwise intact. IMPRESSION: No acute radiographic abnormality in the chest. Dictated by: Dictated on workstation # [id number] Dict: 05/04/23 1436 Trans: 05/04/23 1440 [id number] Interpreted by: SHAHBAZ CEVALLOS DO Electronically signed by: SHAHBAZ CEVALLOS DO 05/04/23 1440 Departure Impression Primary Impression: Chest pressure Additional Impression: Paroxysmal A-fib Disposition: 01 HOME, SELF-CARE Condition: Stable Departure-Patient Inst. Decision time for Depature: 15:45 Referrals: DEANNA AHUJA MD (PCP/Family) Primary Care Physician Patient Instructions: Chest Pain, Adult ED Add. Discharge Instructions: It does not appear like you are actively having a heart attack or anything more life-threatening at this time. 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 If symptoms worsen or you have any other concerns for anything life-threatening and of course she can come back to the ER. ROEL HEARD MD May 04, 2023 14:33
[2023-05-04 14:34] LABS: INR 0.9 (0.8-1.4); PROTHROMBIN TIME PATIENT 12.9 SEC (12.2-14.7)
--- NOTE | 2023-05-04 14:39 | Diagnostic Imaging Report ---
EXAMINATION: Chest, 1 view. HISTORY: Chest pain. COMPARISON: 04/25/2023. FINDINGS: Heart size and pulmonary vasculature are normal. The lungs are clear without consolidation, pleural effusion, or pneumothorax. Degenerative changes of the thoracic spine. Osseous structures are otherwise intact. IMPRESSION: No acute radiographic abnormality in the chest. Dictated by: Dictated on workstation # [id number]
[2023-05-04 14:47] LABS: ALANINE AMINOTRANSFERASE 12 U/L (0-55); ALBUMIN 4.1 GM/DL (3.2-4.5); ALKALINE PHOSPHATASE 119 U/L (40-136); BILIRUBIN,TOTAL 0.8 MG/DL (0.1-1.0); BUN/CREATININE RATIO 12; CALCIUM 9.7 MG/DL (8.5-10.1); CARBON DIOXIDE 32 MMOL/L (21-32); CHLORIDE 98 MMOL/L (98-107); CREATININE SERUM 0.84 MG/DL (0.60-1.30); GFR ESTIMATED 77; GLUCOSE 171 MG/DL (70-105); LIPASE 29 U/L (8-78); MAGNESIUM 1.8 MG/DL (1.6-2.4); SODIUM 140 MMOL/L (135-145); TOTAL PROTEIN 7.2 GM/DL (6.4-8.2)
[2023-05-04 15:38] VITALS: BP 160/81
== END 2023-05-04 15:40 | disposition home or self-care (01) ==
LOC: EDUNIT# 14:10 → ER FS 14:13
DX: I48.0 Paroxysmal atrial fibrillation (principal); I25.10 Atherosclerotic heart disease of native coronary artery without angina pectoris; J44.9 Chronic obstructive pulmonary disease, unspecified; I25.2 Old myocardial infarction; E66.9 Obesity, unspecified; I48.20 Chronic atrial fibrillation, unspecified; F17.210 Nicotine dependence, cigarettes, uncomplicated; Z95.5 Presence of coronary angioplasty implant and graft; Z68.42 Body mass index [BMI] 45.0-49.9, adult; Z91.148 Patient's other noncompliance with medication regimen for other reason; Z99.81 Dependence on supplemental oxygen; Z79.01 Long term (current) use of anticoagulants; Z79.899 Other long term (current) drug therapy
CPT/HCPCS: 36415; 71045; 80053; 83690; 83735; 83880; 84484; 85025; 85610; 85730; 93041